=== PATIENT | male | born 1975 | race Two or more races ===

== ENCOUNTER 2016-03-13 10:43 | Emergency (ER) | payer BC, OTHER ==
[~2016-03-13] VITALS: Ht 172.7 cm; Wt 78.0 kg
[2016-03-13 11:15] VITALS: BP 125/86
== END 2016-03-13 12:54 | disposition home or self-care (01) ==
LOC: ER 10:46
DX: S83.92XA Sprain of unspecified site of left knee, initial encounter (principal); W10.9XXA Fall (on) (from) unspecified stairs and steps, initial encounter; Y93.01 Activity, walking, marching and hiking; Y99.8 Other external cause status; Y92.89 Other specified places as the place of occurrence of the external cause; Z88.6 Allergy status to analgesic agent; Z88.8 Allergy status to other drugs, medicaments and biological substances
CPT/HCPCS: 73562

== ENCOUNTER 2017-12-29 21:27 | Emergency (ER) | payer BC, OTHER ==
[~2017-12-29] VITALS: Ht 172.7 cm; Wt 77.1 kg
[2017-12-29 22:08] VITALS: BP 110/86
[2017-12-29] MEDS ORDERED: MEPERIDINE HCL (50 MG/ML) 1 ML VIAL IM ONE (22:45)
[2017-12-29] MEDS ORDERED: ONDANSETRON HCL 4 MG/2 ML VIAL IM ONE (22:45)
== END 2017-12-29 23:27 | disposition home or self-care (01) ==
LOC: ER 21:27
DX: S33.5XXA Sprain of ligaments of lumbar spine, initial encounter (principal); Z88.6 Allergy status to analgesic agent; Z88.8 Allergy status to other drugs, medicaments and biological substances; X58.XXXA Exposure to other specified factors, initial encounter; Y93.89 Activity, other specified; Y99.8 Other external cause status; Y92.89 Other specified places as the place of occurrence of the external cause
CPT/HCPCS: 72131; 96372; 99284; J2175; J2405

== ENCOUNTER 2020-09-24 07:30 | Emergency (ER) | payer BC, OTHER ==
[~2020-09-24] VITALS: Ht 170.2 cm; Wt 79.4 kg
[2020-09-24 08:19] LABS: Basophils # (auto) 0 10 ^3/uL (0-0.2); Basophils % (auto) 0.4 % (0.0-2.0); Eosinophils # (auto) 0 10 ^3/uL (0-0.8); Eosinophils % (auto) 0.6 % (0.0-7.0); Hemoglobin 16.5 g/dL (13.5-17.5); Lymphocytes # (auto) 0.9 10 ^3/uL (0.4-5.4); Lymphocytes % (auto) 15.5 % (10.0-50.0); Mean Corpuscular Hemoglobin 30.1 pg (28.0-32.0); Mean Corpuscular Hgb Conc. 35.1 g/dL (32.0-36.0); Mean Corpuscular Volume 85.6 fL (80.0-100.0); Monocytes # (auto) 0.3 10 ^3/uL (0-1.3); Monocytes % (auto) 5.9 % (0.0-12.0); Neutrophils # (auto) 4.5 10 ^3/uL (1.6-8.6); Neutrophils % (auto) 77.6 % (37.0-80.0); Nucleated Red Blood Cells % 0.1 %; Red Blood Cells 5.49 10^6/uL (4.5-5.90); Red Cell Distribution Width 13.3 % (11.8-14.3); White Blood Cell 5.8 10^3/uL (4.4-10.8)
[2020-09-24 08:47] LABS: Albumin 3.9 g/dL (3.4-5.0); Anion Gap 5 (5-15); BUN/Creatinine Ratio 11.5; Blood Urea Nitrogen 12 mg/dL (7-18); Calcium 9.1 mg/dL (8.5-10.1); Carbon Dioxide 28 mmol/L (21-32); Chloride 106 mmol/L (98-107); GFR African American 100 mL/min; GFR Non-African American 83 mL/min; Glucose 107 mg/dL (74-106); Magnesium 2.4 mg/dL (1.6-2.6); Potassium 4.1 mmol/L (3.5-5.1); Sodium 139 mmol/L (136-145)
[2020-09-24 08:52] LABS: Alanine Aminotransferase 32 U/L (16-61); Alkaline Phosphatase 82 U/L (45-117); Aspartate Aminotransferase 9 U/L (15-37); Bilirubin, Total 0.7 mg/dL (0.2-1.0); Total Protein 7.1 g/dL (6.4-8.2)
[2020-09-24] MEDS ORDERED: LORazepam 0.5 MG TAB PO ONE (09:00)
[2020-09-24 10:27] LABS: Urine WBC None Seen /hpf (0 - 3)
[2020-09-24 10:37] LABS: Urine Bacteria NONE SEEN /hpf (None Seen); Urine Blood Negative /uL (Negative); Urine Specific Gravity 1.002 (1.001-1.035)
[2020-09-24 12:17] VITALS: BP 119/76
== END 2020-09-24 12:18 | disposition home or self-care (01) ==
LOC: ER 07:30
DX: R07.89 Other chest pain (principal); F43.10 Post-traumatic stress disorder, unspecified; F41.1 Generalized anxiety disorder; Z20.822 Contact with and (suspected) exposure to COVID-19; Z88.6 Allergy status to analgesic agent; Z88.8 Allergy status to other drugs, medicaments and biological substances
CPT/HCPCS: 36415; 71046; 80053; 81001; 83735; 84484; 85025; 87426; 93005

== ENCOUNTER 2021-04-11 05:27 | Emergency (ER) | payer BC, OTHER ==
[~2021-04-11] VITALS: Ht 170.2 cm; Wt 67.1 kg
[2021-04-11] MEDS ORDERED: ASPirin 81 mg TAB PO ONE (07:15)
[2021-04-11 07:24] LABS: Basophils # (auto) 0 10 ^3/uL (0-0.2); Basophils % (auto) 0.4 % (0.0-2.0); Eosinophils # (auto) 0.1 10 ^3/uL (0-0.8); Eosinophils % (auto) 1.5 % (0.0-7.0); Hematocrit 44.8 % (41.0-53.0); Hemoglobin 15.3 g/dL (13.5-17.5); Lymphocytes # (auto) 1.3 10 ^3/uL (0.4-5.4); Lymphocytes % (auto) 29.1 % (10.0-50.0); Mean Corpuscular Hemoglobin 29.4 pg (28.0-32.0); Mean Corpuscular Volume 86.5 fL (80.0-100.0); Monocytes # (auto) 0.4 10 ^3/uL (0-1.3); Monocytes % (auto) 8.1 % (0.0-12.0); Neutrophils # (auto) 2.8 10 ^3/uL (1.6-8.6); Neutrophils % (auto) 60.9 % (37.0-80.0); Nucleated Red Blood Cells % 0.1 %; Red Blood Cells 5.18 10^6/uL (4.5-5.90); White Blood Cell 4.6 10^3/uL (4.4-10.8)
[2021-04-11 07:38] LABS: Albumin 3.8 g/dL (3.4-5.0); Potassium 3.3 mmol/L (3.5-5.1)
[2021-04-11 07:57] LABS: BUN/Creatinine Ratio 10.4; Bilirubin, Total 0.9 mg/dL (0.2-1.0); Total Protein 6.7 g/dL (6.4-8.2)
[2021-04-11 08:41] LABS: Urine Bacteria FEW /hpf (None Seen); Urine Blood Negative /uL (Negative); Urine Specific Gravity 1.004 (1.001-1.035); Urine WBC <1 /hpf (0 - 3)
[2021-04-11] MEDS ORDERED: ALPR0.254 PO (10:08)
[2021-04-11 11:17] VITALS: BP 118/76
== END 2021-04-11 11:21 | disposition home or self-care (01) ==
LOC: ER 05:27
DX: R07.89 Other chest pain (principal); E78.5 Hyperlipidemia, unspecified; Z88.6 Allergy status to analgesic agent; Z88.8 Allergy status to other drugs, medicaments and biological substances
CPT/HCPCS: 36415; 71045; 80053; 81001; 83880; 84484; 85025; 93005

== ENCOUNTER 2021-11-04 13:11 | Emergency (ER) | payer BC, OTHER ==
[~2021-11-04] VITALS: Ht 170.2 cm; Wt 65.0 kg
[~2021-11-04 13:11] MED LIST: ALPR0.254 PO
[2021-11-04 15:59] LABS: Basophils # (auto) 0 10 ^3/uL (0-0.2); Basophils % (auto) 0.3 % (0.0-2.0); Eosinophils # (auto) 0 10 ^3/uL (0-0.8); Eosinophils % (auto) 0.4 % (0.0-7.0); Hematocrit 45.7 % (41.0-53.0); Hemoglobin 15.2 g/dL (13.5-17.5); Lymphocytes # (auto) 1.2 10 ^3/uL (0.4-5.4); Lymphocytes % (auto) 14.6 % (10.0-50.0); Mean Corpuscular Hemoglobin 28.8 pg (28.0-32.0); Mean Corpuscular Hgb Conc. 33.3 g/dL (32.0-36.0); Mean Corpuscular Volume 86.5 fL (80.0-100.0); Monocytes # (auto) 0.4 10 ^3/uL (0-1.3); Monocytes % (auto) 4.5 % (0.0-12.0); Neutrophils # (auto) 6.7 10 ^3/uL (1.6-8.6); Neutrophils % (auto) 80.2 % (37.0-80.0); Nucleated Red Blood Cells % 0.1 %; Red Blood Cells 5.28 10^6/uL (4.5-5.90); Red Cell Distribution Width 13.6 % (11.8-14.3); White Blood Cell 8.3 10^3/uL (4.4-10.8)
[2021-11-04 16:11] LABS: Calcium 9.2 mg/dL (8.5-10.1); Potassium 3.8 mmol/L (3.5-5.1)
[2021-11-04 16:14] LABS: BUN/Creatinine Ratio 12.5; Bilirubin, Total 0.8 mg/dL (0.2-1.0); Total Protein 6.6 g/dL (6.4-8.2)
[2021-11-04] MEDS ORDERED: SODIUM CHLORIDE 0.9% 1,000 ML IV ONE (16:45)
[2021-11-04] MEDS ORDERED: OMEP-263 PO (18:20)
[2021-11-04] MEDS ORDERED: METO-281 PO (18:20)
[2021-11-04 19:14] VITALS: BP 124/80
== END 2021-11-04 19:18 | disposition home or self-care (01) ==
LOC: ER 13:11 → EDBD 13:11 → ER 19:17
DX: R10.9 Unspecified abdominal pain (principal); F41.1 Generalized anxiety disorder; E78.5 Hyperlipidemia, unspecified; Z88.6 Allergy status to analgesic agent
CPT/HCPCS: 36415; 74176; 80053; 83690; 85025; 93005; 96360; 99285; J7030

== ENCOUNTER 2021-12-20 12:21 | Emergency (ER) | payer BC, OTHER ==
[~2021-12-20] VITALS: Ht 157.5 cm; Wt 64.6 kg
[~2021-12-20 12:21] MED LIST changes: +METO-281 PO; +OMEP-263 PO
[2021-12-20 12:42] VITALS: BP 152/83
== END 2021-12-20 17:22 | disposition left against medical advice (07) ==
LOC: ER 12:21
DX: T45.91XA Poisoning by unspecified primarily systemic and hematological agent, accidental (unintentional), initial encounter (principal); E78.5 Hyperlipidemia, unspecified; Z88.6 Allergy status to analgesic agent; Y92.89 Other specified places as the place of occurrence of the external cause

== ENCOUNTER 2022-02-10 13:09 | Emergency (ER) | payer BC, OTHER ==
[~2022-02-10] VITALS: Ht 170.2 cm; Wt 62.6 kg
[2022-02-10 13:38] VITALS: BP 145/98
[2022-02-10] MEDS ORDERED: KETOROLAC TROMETH 60MG/2ML VIAL IM ONE (16:15)
[2022-02-10] MEDS ORDERED: LORA-483 GT (17:53)
[2022-02-10] MEDS ORDERED: IBUP600T27 PO (17:53)
[2022-02-10] MEDS ORDERED: ACET-1158 PO (17:53)
== END 2022-02-10 18:10 | disposition home or self-care (01) ==
LOC: ER 13:14
DX: J02.8 Acute pharyngitis due to other specified organisms (principal); B97.89 Other viral agents as the cause of diseases classified elsewhere; E78.5 Hyperlipidemia, unspecified; Z79.899 Other long term (current) drug therapy; Z88.6 Allergy status to analgesic agent; Z88.8 Allergy status to other drugs, medicaments and biological substances
CPT/HCPCS: 82962; 96372; 99283; J1885

== ENCOUNTER 2022-10-31 04:03 | Emergency (ER) | payer MEDICARE, OTHER, BC ==
[~2022-10-31] VITALS: Ht 172.7 cm; Wt 62.7 kg
[~2022-10-31 04:03] MED LIST changes: +ACET500T58 PO; +IBUP-1454 PO; +LORA-483 GT; -OMEP-263 PO; +OMEP-448 PO
[2022-10-31] MEDS ORDERED: LORazepam 0.5 MG TAB PO ONE (07:15)
[2022-10-31 07:41] LABS: Basophils # (auto) 0 10 ^3/uL (0-0.2); Basophils % (auto) 0.4 % (0.0-2.0); Eosinophils # (auto) 0.1 10 ^3/uL (0-0.8); Eosinophils % (auto) 1.9 % (0.0-7.0); Hematocrit 40.7 % (41.0-53.0); Hemoglobin 14.5 g/dL (13.5-17.5); Lymphocytes # (auto) 1.6 10 ^3/uL (0.4-5.4); Lymphocytes % (auto) 23.1 % (10.0-50.0); Mean Corpuscular Hemoglobin 30.7 pg (28.0-32.0); Mean Corpuscular Hgb Conc. 35.6 g/dL (32.0-36.0); Mean Corpuscular Volume 86.2 fL (80.0-100.0); Monocytes # (auto) 0.4 10 ^3/uL (0-1.3); Monocytes % (auto) 5.5 % (0.0-12.0); Neutrophils # (auto) 4.8 10 ^3/uL (1.6-8.6); Neutrophils % (auto) 69.1 % (37.0-80.0); Nucleated Red Blood Cells % 0.1 %; Red Blood Cells 4.73 10^6/uL (4.5-5.90); Red Cell Distribution Width 13.4 % (11.8-14.3); White Blood Cell 6.9 10^3/uL (4.4-10.8)
[2022-10-31 08:04] LABS: Alanine Aminotransferase 20 U/L (7-40); Albumin 4.2 g/dL (3.2-4.8); Alkaline Phosphatase 68 U/L (46-116); Anion Gap 8.2 (5-15); Aspartate Aminotransferase 14 U/L (13-40); BUN/Creatinine Ratio 7.2 (10.0-20.0); Bilirubin, Total 0.7 mg/dL (0.2-1.0); Blood Urea Nitrogen 7 mg/dL (9-23); Calcium 9.4 mg/dL (8.5-10.1); Carbon Dioxide 25.8 mmol/L (20-30); Chloride 106 mmol/L (98-107); Glucose 102 mg/dL (74-106); Potassium 3.3 mmol/L (3.5-5.1); Sodium 140 mmol/L (136-145); Total Protein 6.7 g/dL (5.7-8.2)
[2022-10-31 08:25] VITALS: BP 113/72; PULSE 70; RESP 18; TEMP 98.1; O2SAT 99
[2022-10-31 08:57] LABS: Urine Bacteria NONE SEEN /hpf (None Seen); Urine Blood Negative /uL (Negative); Urine Clarity Clear (Clear); Urine Color Yellow (Yellow); Urine Protein, UAD Negative (Negative); Urine Specific Gravity 1.012 (1.001-1.035); Urine Urobilinogen Normal (Negative); Urine WBC 1 /hpf (0 - 3); Urine pH 6.5 (5.0-8.0)
== END 2022-10-31 08:15 | disposition home or self-care (01) ==
LOC: ER 04:03
DX: F41.9 Anxiety disorder, unspecified (principal); R07.89 Other chest pain; E78.5 Hyperlipidemia, unspecified; Z87.891 Personal history of nicotine dependence; Z88.6 Allergy status to analgesic agent
CPT/HCPCS: 36415; 80053; 81001; 84484; 85025; 85379

== ENCOUNTER 2022-11-14 12:31 | Emergency (ER) | payer MEDICARE, OTHER, BC ==
[~2022-11-14] VITALS: Ht 170.2 cm; Wt 62.3 kg
[2022-11-14 14:36] VITALS: BP 119/83; PULSE 65; RESP 17; TEMP 96.9; O2SAT 98
[2022-11-14] MEDS ORDERED: KETOROLAC TROMETH 60MG/2ML VIAL IM ONE (15:15)
[2022-11-14] MEDS ORDERED: CYCL-837 PO (16:00)
[2022-11-14] MEDS ORDERED: IBUP-1455 PO (16:07)
== END 2022-11-14 16:01 | disposition home or self-care (01) ==
LOC: ER 12:31
DX: M54.31 Sciatica, right side (principal); M62.838 Other muscle spasm; E78.5 Hyperlipidemia, unspecified; Z87.891 Personal history of nicotine dependence; Z79.1 Long term (current) use of non-steroidal anti-inflammatories (NSAID); Z79.899 Other long term (current) drug therapy; Z88.6 Allergy status to analgesic agent; Z88.8 Allergy status to other drugs, medicaments and biological substances
CPT/HCPCS: 72131; 96372; 99285; J1885